=== PATIENT | male | born 1940 | race Two or more races ===

== ENCOUNTER 2024-05-20 15:42 | Emergency (ER) | payer OTHER ==
[~2024-05-20] VITALS: Ht 170.2 cm; Wt 72.6 kg
[2024-05-20] MEDS ORDERED: ATORVASTATIN CA20 MG PO (16:41)
[2024-05-20] MEDS ORDERED: SYNTHROID75 MCG PO (16:41)
[2024-05-20] MEDS ORDERED: JARDIANCE10 MG PO (16:41)
[2024-05-20] MEDS ORDERED: ASPIRIN81 MG PO (16:42)
[2024-05-20] MEDS ORDERED: GLUMETZA500 MG PO (16:42)
[2024-05-20] MEDS ORDERED: CEFTRIAXONE SODIUM 2,000 MG VIAL IV ONE (17:15)
[2024-05-20] MEDS ORDERED: CEFTRIAXONE SODIUM 2,000 MG VIAL ONE (17:17)
[2024-05-20 17:38] LABS: HEMATOCRIT 46.4 % (39.0-48.0); HEMOGLOBIN 15.9 g/dL (13-16.00); MEAN CELL VOLUME 91.6 fL (80.0-100.00); MEAN CORPUSCULAR HEMOGLOBIN 31.4 pg (27.00-32.0); MEAN CORPUSCULAR HGB CONC 34.3 g/dl (32.0-36.0); PLATELET COUNT 235 K/uL (150-450); RED BLOOD COUNT 5.06 M/uL (4.00-6.00); RED CELL DISTRIBUTION WIDTH 13.5 % (11.5-14.5)
[2024-05-20 18:03] LABS: ALBUMIN 4.2 gm/dL (3.4-5.0); BILIRUBIN TOTAL 0.77 mg/dL (0.3-1.2); CALCIUM 9.3 mg/dL (8.5-10.1); CREATININE SERUM 1.25 mg/dL (0.70-1.30); GFR 55.43; POTASSIUM 4.7 mEq/L (3.5-5.1); TOTAL PROTEIN 8.2 gm/dL (6.4-8.2)
[2024-05-20 18:26] LABS: URINE APPEARANCE Clear; URINE BILIRRUBIN Negative (NEGATIVE); URINE BLOOD Large; URINE COLOR Orange; URINE KETONE Negative (NEGATIVE); URINE LEUKOCYTE Negative; URINE NITRATE Negative; URINE PROTEIN 30 (NEGATIVE); URINE UROBILINOGEN 0.2 E.U./dl
[2024-05-20 18:30] LABS: URINE BACTERIA 89.4 uL (0.0-1933); URINE RBC 7733.8 uL (0.0-20.8); URINE WBC 16.9 uL (0.0-23.2)
[2024-05-20 18:34] LABS: URINE CAST 0.15 uL (0.0-1.40); URINE EPITHELIAL CELLS 0.7 uL (0.0-38.8); URINE GLUCOSE >=1000 MG/DL (NEGATIVE)
[2024-05-20] MEDS ORDERED: TAMS0.4C PO (19:38)
[2024-05-20] MEDS ORDERED: LEVOFLOXACIN750 MG PO (19:38)
[2024-05-20] MEDS ORDERED: TAMSULOSIN HCL 0.4 MG CAP PO ONE ×2 (19:45→19:47)
== END 2024-05-20 20:20 ==
LOC: ER 15:42
PROVIDERS: Nurse Practitioner Family
DX: R31.9 Hematuria, unspecified (principal); N40.0 Benign prostatic hyperplasia without lower urinary tract symptoms; E03.8 Other specified hypothyroidism; E11.9 Type 2 diabetes mellitus without complications; Z79.84 Long term (current) use of oral hypoglycemic drugs
CPT/HCPCS: 36415; 74176; 96365; 99284; J0696

== ENCOUNTER 2024-12-05 09:05 | Emergency (ER) | payer OTHER ==
[~2024-12-05] VITALS: Ht 170.2 cm; Wt 72.6 kg
[~2024-12-05 09:05] MED LIST: ASPIRIN81 MG PO; ATORVASTATIN CA20 MG PO; GLUMETZA500 MG PO; JARDIANCE10 MG PO; LEVOFLOXACIN750 MG PO; SYNTHROID75 MCG PO; TAMS0.4C PO
[2024-12-05] MEDS ORDERED: CEFTRIAXONE SODIUM 1,000 MG VIAL IV ONE (10:30)
[2024-12-05 11:06] LABS: HEMATOCRIT 48.7 % (39.0-48.0); HEMOGLOBIN 16.7 g/dL (13-16.00); MEAN CELL VOLUME 92.1 fL (80.0-100.00); MEAN CORPUSCULAR HEMOGLOBIN 31.5 pg (27.00-32.0); MEAN CORPUSCULAR HGB CONC 34.2 g/dl (32.0-36.0); PLATELET COUNT 214 K/uL (150-450); RED BLOOD COUNT 5.29 M/uL (4.00-6.00); RED CELL DISTRIBUTION WIDTH 13.7 % (11.5-14.5)
[2024-12-05 12:00] LABS: ALBUMIN 3.9 gm/dL (3.4-5.0); BILIRUBIN TOTAL 1.02 mg/dL (0.3-1.2); CALCIUM 9.5 mg/dL (8.5-10.1); CREATININE SERUM 1.04 mg/dL (0.70-1.30); GFR 68.37; GLOBULINA 4.5 G/DL (2.4-3.5); POTASSIUM 4.79 mEq/L (3.5-5.1); TOTAL PROTEIN 8.4 gm/dL (6.4-8.2)
[2024-12-05 12:08] LABS: PH,URINE 6.5 (5.0-8.0); URINE APPEARANCE Cloudy; URINE BILIRRUBIN Negative (NEGATIVE); URINE BLOOD Large; URINE COLOR Orange; URINE KETONE Negative (NEGATIVE); URINE LEUKOCYTE Small; URINE NITRATE Negative; URINE UROBILINOGEN 0.2 E.U./dl
[2024-12-05 12:09] LABS: URINE BACTERIA 385.5 uL (0.0-1933); URINE EPITHELIAL CELLS 12.9 uL (0.0-38.8); URINE WBC 82.4 uL (0.0-23.2)
[2024-12-05 12:22] LABS: PROSTATIC SPECIFIC ANTIGEN 10.9 NG/ML (0.010-4.00)
[2024-12-05 12:22] LABS: URINE CAST 0.32 uL (0.0-1.40); URINE GLUCOSE >=1000 MG/DL (NEGATIVE); URINE PROTEIN 100 (NEGATIVE); URINE RBC > 10558.9 uL (0.0-20.8)
[2024-12-05] MEDS ORDERED: CEPHALEXIN500 M1 PO (13:11)
== END 2024-12-05 14:07 | disposition home or self-care (01) ==
LOC: ER 09:05
PROVIDERS: General Practice
DX: R31.9 Hematuria, unspecified (principal); I10 Essential (primary) hypertension; E11.9 Type 2 diabetes mellitus without complications; Z79.84 Long term (current) use of oral hypoglycemic drugs
CPT/HCPCS: 36415; 96365; 99282; J0696

== ENCOUNTER → 2024-12-20 | Emergency (ER) | payer OTHER ==
[~2024-12-20] VITALS: Ht 170.2 cm; Wt 72.6 kg
[~2024-12-20] MED LIST changes: +CEPHALEXIN500 M1 PO; +CIPRO500 MG/5 M PO
== END | disposition left against medical advice (07) ==
LOC: ER 00:06
DX: Z53.21 Procedure and treatment not carried out due to patient leaving prior to being seen by health care provider (principal)